=== PATIENT | female | born 2005 | race Caucasian/White ===

== ENCOUNTER → 2024-09-16 | Outpatient (CLI) | payer MEDICAID, SELFPAY ==
[2024-09-15 16:07] LABS: HCG Qualitative,Urine Negative
--- NOTE | 2024-09-16 08:00 | XR_ITS ---
Examination: MRI of brain without intravenous contrast. MRI brain with intravenous contrast. Date and time of exam:September 16, 2024 0830 hrs. Indications: Left-sided headaches paresthesias head pain 5 months Technique: Multiple axial and sagittal images of the brain to been obtained. Siemens high-resolution 1.52 Lisa short bore scanner utilized. Sagittal sections, T1 weighted images, TR 500, TE 14, are performed. Axial sections proton-density and T2-weighted images have been obtained. Inversion recovery axial images, TR 9260, TE 111, TR 2500. Diffusion weighted images, axial sections, TR 4800, TE 128, B value 1000. Axial sections, ADC map, TR 4800, TE 128. Axial and coronal images were also obtained post 20 cc gadolinium administered intravenously. Findings:: Enlargement of the sella turcica is not present. The optic chiasm and infundibular stalk are not remarkable. There is no localized enlargement of the medulla or nadia. Fourth ventricle and cerebellar tonsils appear normal in position. No subacute area of hemorrhage density is seen. Fourth ventricle is midline. Mass in the cerebellopontine angle region is not evident. 7th and 8th nerve complexes exhibit symmetry Globes are symmetrical Orbital musculature including medial lateral rectus muscles do not exhibit abnormality Increased white matter signal is prominent Effacement of the cortical sulcal markings is not identified. Mass effect upon the ventricular system is not identified. Diffusion-weighted images demonstrate no focus of restricted diffusion Contrast images demonstrate no abnormal enhancement Impression: Demyelinating disease
== END | disposition home or self-care (01) ==
LOC: SMRI 07:28
PROVIDERS: Referring Provider Psychiatry & Neurology Neurology; Visit Provider Psychiatry & Neurology Neurology
DX: G37.9 Demyelinating disease of central nervous system, unspecified (principal); Z32.00 Encounter for pregnancy test, result unknown
CPT/HCPCS: 70553; 81025; A9579

== ENCOUNTER → 2024-10-27 | Outpatient (CLI) | payer MEDICAID, SELFPAY ==
[2024-10-26 17:17] LABS: HCG Qualitative,Urine Negative
--- NOTE | 2024-10-27 09:30 | XR_ITS ---
Examination: MRI cervical spine, without intravenous contrast. MRI cervical spine , with intravenous contrast. Exam date and time: October 27, 2024 1038 hours INDICATIONS: Neck pain elective: Pulses in the neck and lower back with numbness in the hands 5 months Technique: Multiple axial, sagittal and coronal images of the cervical spine have been obtained with the Siemens high-resolution 1.5 Lisa MRI scanner. Images obtained included T2 weighted fat suppressed sagittal sections, TR 3500, TE 46, T2 weighted coronal fat suppressed images, TR 3050, TE 84, T2-weighted transverse fat suppressed images, TR 30-60, TE 63, proton density transverse images, TR 4720, TE 46, and T1 weighted coronal images, TR 560, TE 13. Axial, sagittal and coronal images are obtained post intravenous injection 20 cc gadolinium. Findings: Adequate alignment cervical vertebral bodies No cervical fracture Disc desiccation C5-C6 Subtle diffuse increased signal in the cervical cord on the precontrast images No abnormal enhancement involving the cervical cord Axial images demonstrate mild to moderate left neural foraminal stenosis C5-C6 IMPRESSION: No cervical fracture or significant cervical disc narrowing Mild to moderate left neural foraminal stenosis C5-C6 Subtle diffuse increased signal in the cervical cord on the precontrast images, clinical correlation advised
== END | disposition home or self-care (01) ==
PROVIDERS: PCP Registered Nurse Community Health; Referring Provider Psychiatry & Neurology Neurology; Visit Provider Psychiatry & Neurology Neurology
DX: M48.02 Spinal stenosis, cervical region (principal); Z32.00 Encounter for pregnancy test, result unknown
CPT/HCPCS: 72156; 81025; A9579

== ENCOUNTER → 2024-10-31 | Outpatient (CLI) | payer MEDICAID, SELFPAY ==
--- NOTE | 2024-10-31 09:00 | XR_ITS ---
Examination: Abdomen sonogram, Limited Date and time of exam: October 31, 2024 0845 hours INDICATIONS: Diagnosis of morbid obesity Technique: Real-time kee scale transabdominal sonographic images of the upper abdomen obtained. Findings: Normal gallbladder Normal common bile duct 0.2 cm Pancreatic head 2.9 cm Liver 15.1 cm fatty infiltration Normal hepatopedal portal venous flow Patent IVC IMPRESSION: Normal gallbladder Fatty liver
--- NOTE | 2024-10-31 09:30 | XR_ITS ---
Examination: Upper GI series with KUB Esophagram standard Fluoroscopy 13 spot fluoroscopic films esophagus stomach Exam date and time: October 31, 2024 0822 hours INDICATIONS: Clearance for bariatric surgery TECHNIQUE AND FINDINGS: Brand Marketing Manager AP supine abdomen single view demonstrates nonobstructive bowel gas pattern Patient swallowed thin barium with 13 spot films obtained of the esophagus stomach duodenal bulb duodenal sweep and small bowel Fluoroscopy 0.20 minutes Primary peristaltic esophageal waves Small sliding esophageal hernia No reflux No constricting esophageal lesion No gastric mass deformity or ulceration Duodenal bulb expands symmetrically Duodenal sweep unremarkable IMPRESSION: Small sliding esophageal hernia, otherwise negative upper GI series
== END | disposition home or self-care (01) ==
PROVIDERS: PCP Registered Nurse Community Health; Referring Provider Surgery; Visit Provider Surgery
DX: K44.9 Diaphragmatic hernia without obstruction or gangrene (principal); K76.0 Fatty (change of) liver, not elsewhere classified
CPT/HCPCS: 74240; 76705; A4699

== ENCOUNTER 2024-12-26 15:59 | Emergency (ER) | payer MEDICAID, SELFPAY ==
[2024-12-26 16:01] VITALS: BMI 46.7
[2024-12-26 16:37] VITALS: BP 111/76; PULSE 79; RESP 18; TEMP 37.1; O2SAT 99
--- NOTE | 2024-12-26 16:52 | EDNOTE_ITS ---
ED General RME/HPI General Chief complaint: General Adult/Misc Complain Stated complaint: BLOOD DRAW; SENT BY DR. DE LA CRUZ. Time Seen by Provider: 12/26/24 16:02 Arrival date/time: 12/26/24 15:59 19-year-old female currently being worked up for MS presents to the emergency department today with CSF in hand and a lab slip created by Dr De La Cruz neurologist for the patient patient had spinal tap today prior to arrival and was sent here to have the labs sent and drawn Limitations: no limitations Related Data Previous Rx's ?Medication ?Instructions ?Recorded ibuprofen 600 mg tablet 600 mg PO Q8H PRN pain #20 t abs 05/17/24 Allergies Allergy/AdvReac Type Severity Reaction Status Date / Time sulfamethoxazole Allergy Intermediate Hives Verified 12/26/24 16:04 trimethoprim Allergy Mild Rash Verified 12/26/24 16:04 Review of Systems Review of Systems Systems Reviewed: All systems reviewed, normal except as documented Constitutional Constitutional: Reports system reviewed and no additional complaints, except as documented, Denies fever(s) and Denies headache(s) Eyes Eyes: Reports system reviewed and no additional complaints, except as documented and Denies blurry vision ENT Ears, Nose, Mouth, and Throat: Reports system reviewed and no additional complaints, except as documented, Denies headache(s), Denies nasal congestion and Denies nasal discharge Cardiovascular Cardiovascular: Reports system reviewed and no additional complaints, except as documented, Denies chest pain and Denies dyspnea Respiratory Respiratory: Reports system reviewed and no additional complaints, except as documented, Denies chest congestion, Denies cough and Denies dyspnea Gastrointestinal Gastrointestinal: Reports system reviewed and no additional complaints, except as documented and Denies abdominal pain Integumentary/Breasts Skin/Breast: Reports system reviewed and no additional complaints, except as documented and Denies rash Neurologic Neurologic: Reports system reviewed and no additional complaints, except as documented, Reports as per HPI and Denies headache(s) Past Medical History Social History SMOKING STATUS: Never smoker ED Exam General Limitations: Present no limitations General appearance: Present alert and in no apparent distress Head Head exam: Present atraumatic Eye Eye exam: Present normal appearance, PERRL and EOMI ENT ENT exam: Present normal exam, normal oropharynx and mucous membranes moist Neck Neck exam: Present normal inspection, full ROM and trachea midline Chest Chest inspection: Present normal inspection and symmetric chest wall rise Respiratory Respiratory exam: Present normal lung sounds bilaterally Cardiovascular Cardiovascular exam: Present regular rate, normal rhythm and normal heart sounds Abdominal Exam Abdominal exam: Present soft and normal bowel sounds; Absent distention, tenderness, guarding, rebound or rigidity Extremities Exam Extremities exam: Present normal inspection and full ROM Back Exam Back exam: Present normal inspection and full ROM Neurological Exam Neurological exam: Present alert, oriented X3 and CN II-XII intact Psychiatric Psychiatric exam: Present normal affect and normal mood Skin Skin exam: Present warm, dry, intact and normal color Course Quality Measures none Orders Category Date Time Status Angiotensin Convert Enz, CSF* Routine Lab 12/26/24 17:02 Received Body Fld Cult w Yoanna & Gram St Routine Lab 12/26/24 17:02 Results Cell Count w Diff, CSF Routine Lab 12/26/24 17:02 Completed Coccid Serology, CF CSF (UCD)* Routine Lab 12/26/24 17:02 Received Glucose,CSF Routine Lab 12/26/24 17:02 Completed IgG Synthesis Rate/Index, CSF* Routine Lab 12/26/24 17:02 Received Misc Send Out* Routine Lab 12/26/24 17:02 Received Myelin Basic Protein, CSF* Routine Lab 12/26/24 17:02 Received Oligoclonal Bands, CSF* Routine Lab 12/26/24 17:02 Received Protein Total,CSF Routine Lab 12/26/24 17:02 Completed Vital Signs Vital signs: Vital Signs Temperature 98.8 F 12/26/24 16:37 Pulse Rate 79 12/26/24 16:37 Respiratory Rate 18 12/26/24 16:37 Blood Pressure 111/76 12/26/24 16:37 Pulse Oximetry (%) 99 12/26/24 16:37 Oxygen Delivery Method Room Air 12/26/24 16:37 O2 saturation 99% room air within normal limits Discharge Plan Plan Patient Disposition: HOME (Self Care) Discharge Disposition comment: Stable Prescriptions/Referrals Prescriptions/Med Rec: No Action ibuprofen 600 mg tablet 600 mg PO Q8H PRN (Reason: pain) Qty: 20 0RF Referrals: Milagros Mcfarland FNP [Primary Care Provider] - 12/27/24 Problem List Clinical Impression: Autoimmune disease Patient/Caregiver Discharge Instructions Additional Instructions: Please follow-up with Dr De La Cruz as discussed for worsening symptoms or concerns return immediately Print Language: Icelandic Stand Alone Forms: Gretta Award Info., Patient Portal Info Letter PA/JEN Supervising Physician JACOBY/JEN Supervising Physician: dr rissa CHRIS Narrative MDM hospital course: 19-year-old female currently being worked up for MS presents to the emergency department today with CSF in hand and a lab slip created by Dr De La Cruz neurologist for the patient patient had spinal tap today prior to arrival and was sent here to have the labs sent and drawn Patient is currently being worked up for MS patient currently reports no headache dizziness or weakness no chest pain or shortness of breath The lab slip was given to lab personnel who stated will input the orders. Patient discharged home in no distress to follow-up with primary care doctor in the next 24 to 48 hours and for any worsening symptoms to return to the ER immediately Clinical Information Provided by patient Medical Records Reviewed None Meds/Rx Considered, not Ordered None Labs/Rad/Tests considered, not Ordered Describe details: Ordered Chronic Illness/Social Conditions which may negatively complicate care or outcome(s)-explain: None or not applicable EKG EKG not done Lab Interpretation Labs: other Lab(s) interpretation(s): Labs sent Imaging Imaging interpretation: none Medication Administration(s) none Dispositon Disposition: Discharge Home
[2024-12-26 17:28] LABS: Coccid Serology, CF CSF (UCD)* See Sep Rpt; Misc Send Out* See Sep Rpt
[2024-12-26 17:44] LABS: CSF Cell Count Tube # Tube # 4; CSF Color Red (Colorless); CSF Mononuclear 85 %; CSF Polynuclear WBC 15 %; CSF Red Blood Cell 4000 /cmm; CSF White Blood Cell 13 /cmm; CSF, Appearance Hazy (Clear)
[2024-12-26 17:50] LABS: Glucose,CSF 57 mg/dL (40-70); Protein Total,CSF 72 mg/dL (8-32)
[2024-12-26 18:26] LABS: CSF Gram Stain Alert Gram Stain Completed
[2024-12-30 13:48] LABS: Albumin, CSF 39.4 mg/dL (8.0-42.0); IgG Index, CSF 0.98 (<0.70); IgG, CSF 7.2 mg/dL (0.8-7.7); IgG, Serum 875 mg/dL (600-1640)
[2025-01-01 06:59] LABS: Albumin, Serum 4.7 g/dL (3.6-5.1); VDRL, CSF Qual* NON-REACTIVE
[2025-01-04 06:56] LABS: Myelin Basic Protein, CSF* <2.0 mcg/L (< OR = 4.0)
[2025-01-04 06:58] LABS: Angiotensin Convert Enz, CSF* <5 U/L (< OR = 15); Oligoclonal Bands, CSF* PRESENT (ABSENT)
== END 2024-12-26 17:42 | disposition home or self-care (01) ==
PROVIDERS: Family Medicine; Emergency Provider Nurse Practitioner Primary Care; PCP Registered Nurse Community Health
DX: M35.9 Systemic involvement of connective tissue, unspecified (principal)
CPT/HCPCS: 36415; 82040; 82042; 82164; 82784; 82945; 83873; 83916; 84157; 86171; 86592; 87070; 87075; 87205; 89051; 99283